=== PATIENT | female | born 1950 | race Caucasian/White ===

== ENCOUNTER 2016-08-02 07:47 | Outpatient (CLI) | payer OTHER | END 2016-08-02 07:48 | disposition home or self-care (01) | DX: Z00.00 Encounter for general adult medical examination without abnormal findings (principal) ==

== ENCOUNTER 2016-08-20 08:32 | Outpatient (CLI) | payer OTHER ==
--- NOTE | 2016-08-21 13:09 | Mammography Report ---
DIGITAL SCREENING MAMMOGRAM: 08/20/2016 CLINICAL INDICATION: A 66-year-old with history of late childbearing for screening. COMPARISON: 01/2013, 12/2012, 12/2011, 03/2007. TECHNIQUE: Routine CC and MLO projections were obtained of the breasts. FINDINGS: Scattered fibroglandular tissue is present within the breasts. There are no dominant jon s, suspicious microcalcifications, or secondary signs of malignancy. In comparison to the previous st udies, there are no significant changes. ASSESSMENT: NO MAMMOGRAPHIC EVIDENCE OF MALIGNANCY. NO SIGNIFICANT INTERVAL CHANGES. RECOMMENDATION: Screening mammography is recommended annually. BIRADS category 1 - negative. STANDARD QUALIFYING STATEMENTS 1. This examination was reviewed with the aid of Computed-Aided Detection (CAD). 2. A negative or benign imaging report should not delay biopsy if clinically suspicious findings are present. Consider surgical consultation if warranted. More than 5% of cancers are not identified by i maging. 3. Dense breasts may obscure an underlying neoplasm. JOB #: [id number] EXT JOB #:[id number]
== END 2016-08-20 08:33 | disposition home or self-care (01) ==
LOC: DI 08:32
PROVIDERS: ATTEND Physician Assistant Medical
DX: Z12.31 Encounter for screening mammogram for malignant neoplasm of breast (principal)
CPT/HCPCS: 77067

== ENCOUNTER 2016-08-20 08:33 | Outpatient (CLI) | payer OTHER ==
--- NOTE | 2016-08-20 14:17 | DEXA Report ---
DEXA SCAN: 08/20/2016 CLINICAL INDICATION: Postmenopausal. TECHNIQUE: Dual energy x-ray absorptiometry (DXA) was performed on a [employer] system. Regions measured are the AP spine, femoral neck, and, if needed, forearm. COMPARISON: None. In accordance with the International Society for Clinical Densitometry (ISCD) guidelines, data from previous exams may be reanalyzed using current recommendations and techniques. This is done to allow a more accurate basis for comparison with the current study. FINDINGS: The data for the lumbar spine is as follows: REGION BMD (g/cm/cm) T-SCORE Z-SCORE L1 0.894 -2.0 -0.8 L2 0.944 -2.1 -0.9 L3 0.958 -2.0 -0.8 L4 1.082 -1.0 0.2 TOTAL 0.979 -1.7 -0.5 NOTE: All evaluable vertebrae are used for classification. The data for the hip is as follows: REGION BMD (g/cm/cm) T-SCORE Z-SCORE Neck 0.779 -1.9 -0.7 TOTAL 0.804 -1.6 -0.7 NOTE: The femoral neck or total proximal femur, whichever is lowest, is used for classification. * Denotes significant change at the 95% confidence level. Denotes dissimilar scan types or analysis methods. IMPRESSION: THE WHO CLASSIFICATION BASED ON THE INTERNATIONAL REFERENCE STANDARD IS OSTEOPENIA. THE FRACTURE RISK IS INCREASED. RECOMMENDATION: Patients with diagnosis of osteoporosis or osteopenia should have regular bone mineral density assessment. For those eligible for Medicare, routine testing is allowed once every 2 years. Testing frequency can be increased for patients who have rapidly progressing disease or for those who are receiving medical therapy to restore bone mass. COMMENT: World Health Organization (WHO) definitions for osteoporosis and osteopenia: NORMAL BMD: T-score at -1.0 or higher, fracture risk is low. OSTEOPENIA BMD: T-score between -1.0 and -2.5, fracture risk is increased. OSTEOPOROSIS BMD: T-score at -2.5 or lower, fracture risk high. National Osteoporosis Foundation recommends: 1. Obtain adequate dietary calcium (at least 1200 mg per day) and vitamin D (400 -800 international units per day). 2. Participate, as appropriate, in regular weightbearing and muscle- strengthening exercise. 3. Avoid tobacco use and reduce alcohol and caffeine intake. 4. For more detailed information see the website at www.NOF.org. MTDD
== END 2016-08-20 08:34 | disposition home or self-care (01) ==
LOC: DI 08:33
PROVIDERS: ATTEND Physician Assistant Medical
DX: Z13.820 Encounter for screening for osteoporosis (principal); M85.89 Other specified disorders of bone density and structure, multiple sites
CPT/HCPCS: 77080

== ENCOUNTER 2016-10-21 07:42 | Day surgery (SDC) | payer OTHER ==
[2016-10-21] MEDS ORDERED: LACTATED RINGERS 1,000 ML IV ONE (08:17)
[2016-10-21] MEDS ORDERED: MIDAZOLAM 2 MG/2 ML VIAL IVP ONE (09:49)
[2016-10-21] MEDS ORDERED: fentaNYL 100 MCG/2 ML VIAL IVP ONE (09:49)
[2016-10-21 11:07] VITALS: BP 110/56
== END 2016-10-21 07:43 | disposition home or self-care (01) ==
LOC: SDS 07:42
PROVIDERS: ATTEND Surgery
PROC: 0DBM8ZX Excision of Descending Colon, Via Natural or Artificial Opening Endoscopic, Diagnostic (ICD-10-PCS; principal; 2016-10-21 08:45)
DX: K63.5 Polyp of colon (principal); K57.30 Diverticulosis of large intestine without perforation or abscess without bleeding; K64.8 Other hemorrhoids; Q43.8 Other specified congenital malformations of intestine
CPT/HCPCS: 45380; J7120

== ENCOUNTER 2018-07-20 13:20 | Outpatient (CLI) | payer MEDICARE, BC ==
--- NOTE | 2018-07-21 09:27 | Mammography Report ---
Reason: SCREENING MAMMO Procedure Date: 07/20/2018 Accession Number: [id number] / [id number] Procedure: [facility] - Screening Mammo w/[place] CPT Code: FULL RESULT: EXAM: Screening Mammo w/[place] DATE: 07/20/2018 2:11 PM CLINICAL HISTORY: Screening examination. History of late childbearing. Family history of breast cancer in a sister at the age of 59. TECHNIQUE: (B) - Bilateral CC and MLO views were obtained. COMPARISON: 08/20/2016 through 10/04/2008. PARENCHYMAL PATTERN: (D) - The breast(s) demonstrate(s) heterogeneously dense fibroglandular parenchyma. FINDINGS: There are no suspicious masses, calcifications, or areas of distortion. IMPRESSION: Negative examination. BI-RADS category 1. RECOMMENDATION: (ANNUAL) - Recommend routine annual screening mammography. BI-RADS CATEGORY: (1) - Negative. STANDARD QUALIFYING STATEMENTS: 1. This examination was not reviewed with the aid of Computer-Aided Detection (CAD). 2. A negative or benign imaging report should not preclude biopsy if clinically suspicious findings are present. 3. Dense breasts may obscure an underlying neoplasm. 4. This examination was reviewed with the aid of 3D breast imaging (tomosynthesis).
== END 2018-07-20 13:21 | disposition home or self-care (01) ==
LOC: DI 13:20
DX: Z12.31 Encounter for screening mammogram for malignant neoplasm of breast (principal); Z80.3 Family history of malignant neoplasm of breast
CPT/HCPCS: 77063; 77067

== ENCOUNTER 2020-07-19 14:20 | Outpatient (CLI) | payer MEDICARE, BC ==
--- NOTE | 2020-07-20 16:24 | DEXA Report ---
PROCEDURE: Dexa Spine and/or Hip INDICATIONS: POSTMENOPAUSAL TECHNIQUE: Dual energy x-ray absorptiometry (DXA) was performed on a [employer] System. Regions measur ed are the AP Spine, femoral neck, and if needed forearm. COMPARISON: 08/20/2016. FINDINGS: Lumbar Spine: Bone Mineral Density 0.92 g/cm/cm,T score -1.7, osteopenia Left Hip: Bone Mineral Density 0.778 g/cm/cm,T score -1.8, osteopenia Left Femoral Neck: Bone Mineral Density 0.746 g/cm/cm, T score -2.1, osteopenia (T score greater or equal to -1.0: NORMAL) (T score from -1.1 to -2.4: OSTEOPENIA) (T score less than or equal to -2.5 to: OSTEOPOROSIS) Impression: Osteopenia. Bone mineral density is decreased 3.2% compared to prior exam obtained 08/21/19 17. Patients with diagnosis of osteoporosis or osteopenia should have regular bone mineral density assess ment. For those eligible for Medicare, routine testing is allowed once every 2 years. Testing frequ ency can be increased for patients who have rapidly progressing disease or for those who are receivin g medical therapy to restore bone mass. Reviewed by: Gwen Zee MD, PhD on 07/20/2020 4:23 PM PDT Approved by: Gwen Zee MD, PhD on 07/20/2020 4:23 PM PDT Station ID: [id number]
== END 2020-07-19 14:21 | disposition home or self-care (01) ==
LOC: DI 14:20
PROVIDERS: ATTEND Physician Assistant Medical
DX: M85.89 Other specified disorders of bone density and structure, multiple sites (principal)

== ENCOUNTER 2020-09-05 14:03 | Outpatient (CLI) | payer MEDICARE, BC ==
--- NOTE | 2020-09-06 13:23 | Mammography Report ---
BILATERAL DIGITAL SCREENING MAMMOGRAM 3D/2D: 09/05/2020 CLINICAL: Routine screening. Comparison is made to exams dated: 07/20/2018 mammogram and 08/20/2016 mammogram - [facility]. The tissue of both breasts is heterogeneously dense. This may lower the sensitivity of mamm ography. No significant masses, calcifications, or other findings are seen in either breast. There has been no significant interval change. IMPRESSION: NEGATIVE There is no mammographic evidence of malignancy. A 1 year screening mammogram is recommended. This exam was interpreted at Station ID: [id number]. NOTE: For mammograms, a report in lay terms will be sent to the patient. Approximately 15% of breast malignancies will not be visualized mammographically. In the management of a palpable breast mass, a negative mammogram must not discourage biopsy of a clinically suspicious lesion. Electronically Signed By: Romie Wellington M.D. ar/[email or web address]:09/05/2020 15:43:34 ACR BI-RADS Category 1: Negative 3341F PARENCHYMAL PATTERN: (D) - The breast(s) demonstrate(s) heterogeneously dense fibroglandular jose hogan. BI-RADS CATEGORY: (1) - 1 RECOMMENDATION: (ANNUAL) - Recommend routine annual screening mammography. [id number] 1 year screening LATERALITY: (B)
== END 2020-09-05 14:04 | disposition home or self-care (01) ==
LOC: DI 14:03
DX: Z12.31 Encounter for screening mammogram for malignant neoplasm of breast (principal)

== ENCOUNTER 2021-03-08 19:05 | Emergency (ER) | payer MEDICARE, BC ==
[2021-03-08 19:19] VITALS: BP 168/75
--- NOTE | 2021-03-08 19:28 | ED Physician Documentation ---
PD HPI LOWER EXT INJURY - Stated complaint Stated Complaint: FALL,LT KNEE INJ - Chief complaint Chief Complaint: Ext Problem - History obtained from History obtained from: Patient - Additional information Additional information: 70-year-old woman who [place] beach today and stepping over a log. She caught her toe coming over the log and landed on her knee and cheekbone. The left knee hurts quite a bit but is better after icing and resting. She was able to walk the half mile back. No other injuries. 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 HEENT: Tonsil/Adenoidectomy - Present Medications Home Medications: Ambulatory Orders Medication Instructions Recorded Confirmed Estradiol [Vagifem] 10 mcg VG ONCE 10/18/16 10/21/16 - Allergies Allergies/Adverse Reactions: Allergies Allergy/AdvReac Type Severity Reaction Status Date / Time latex Allergy Rash Verified 03/08/21 19:16 PD ED PE NORMAL - Vitals Vital signs reviewed: Yes - General General: Alert and oriented X 3, No acute distress - Back Back: No CVA TTP, No spinal TTP - Derm Derm: Normal color, Warm and dry - Extremities Extremities: Other (Left knee has no obvious effusion clinically. She is tender posteriorly but nowhere else on the joint. She is unable to straighten the leg due to weakness more than pain, but I do not appreciate any tenderness over the patella. Ligamentously testing is all intact.) - Neuro Neuro: Alert and oriented X 3, Normal speech Results - Vitals Vitals: Vital Signs - 24 hr 03/08/21 19:11 Temperature 36.6 C Heart Rate 94 Respiratory 18 Rate Blood Pressure 168/75 H O2 Saturation 100 Oxygen O2 Source Room air PD MEDICAL DECISION MAKING - ED course ED course: 70-year-old woman has an isolated left knee injury from a fall. She does not appear to have any ligamentous laxity but is unable to walk. 4 view x-ray of the left knee interpreted contemporaneously by me shows a large effusion no fractures. She was placed in a knee immobilizer and upon crutches pending orthopedic follow-up. She declined prescription pain medication. Departure - Departure Disposition: 01 Home, Self Care Clinical Impression: Knee effusion, left Condition: Good Record reviewed to determine appropriate education?: Yes Instructions: ED Sprain Knee Follow-Up: Jeramie Harmon MD [Provider Admit Priv/Credential] - Comments: As discussed, the x-ray was normal with the exception of fluid in the joint. Given the associated trauma my suspicion is that the fluid represents blood which should reabsorb over time but can be quite painful. You do not seem to have any ligamentous laxity so my hope is that it was nothing importance in the knee that caused the bleeding. You should follow-up with the orthopedic surgeon next week for reevaluation, if not improving quickly he may schedule you for an MRI of your knee. For the first few days you can take ibuprofen at a dose of 600 mg 3-4 times a day as needed for pain, but I would try to transition to acetaminophen after that.
--- NOTE | 2021-03-08 19:55 | XRAY Report ---
PROCEDURE: Knee 4 View LT INDICATIONS: Knee injury TECHNIQUE: 3 views of the left knee(s) were acquired. COMPARISON: None. FINDINGS: There is a large left knee joint effusion with prepatellar soft tissue swelling. No fracture or dislo cation. Normal patellar height and position. IMPRESSION: No fracture. Prepatellar soft tissue swelling and large knee joint effusion. Reviewed by: Vick Lopez MD on 03/08/2021 7:54 PM PST Approved by: Vick Lopez MD on 03/08/2021 7:54 PM PST Station ID: [id number]
== END 2021-03-08 20:24 | disposition home or self-care (01) ==
LOC: ED 19:05
DX: M25.462 Effusion, left knee (principal)
CPT/HCPCS: 99282; 99283

== ENCOUNTER 2021-03-26 11:46 | Outpatient (CLI) | payer MEDICARE, BC ==
--- NOTE | 2021-03-26 12:31 | XRAY Report ---
PROCEDURE: Knee 4 View LT INDICATIONS: LEFT KNEE PAIN TECHNIQUE: 4 views of the left knee(s) were acquired. COMPARISON: March 08, 2021 FINDINGS: BONES/JOINT: Redemonstrated transverse fracture of the inferior patella with increase diastasis anila red to the prior study. Small to moderate suprapatellar joint effusion. SOFT TISSUES: Diffuse edema. IMPRESSION: 1.Transverse fracture of the inferior patella with increased diastasis compared to the prior study. Findings were discussed with ordering physician at the time of dictation. Reviewed by: Juan Blankenship MD on 03/26/2021 12:30 PM PST Approved by: Juan Blankenship MD on 03/26/2021 12:30 PM PST Station ID: [id number]
== END 2021-03-26 11:47 | disposition home or self-care (01) ==
LOC: DI.WOS 11:46
PROVIDERS: ATTEND Physician Assistant
DX: S82.032A Displaced transverse fracture of left patella, initial encounter for closed fracture (principal)

== ENCOUNTER 2021-05-08 09:47 | Outpatient (CLI) | payer MEDICARE, BC ==
--- NOTE | 2021-05-08 17:33 | XRAY Report ---
PROCEDURE: Knee 3 View LT INDICATIONS: PATELLA FRACTURE TECHNIQUE: 3 views of the right knee(s) were acquired. COMPARISON: 03/26/2021 FINDINGS: Bones: Patellar fracture shows evidence of remodeling and bridging callus. Soft tissues: Persistent moderate joint effusion. No suspicious soft tissue calcifications. IMPRESSION: Healing patellar fracture and stable joint effusion Reviewed by: Ollie Malloy MD on 05/08/2021 4:32 PM [place] Approved by: Ollie Malloy MD on 05/08/2021 4:32 PM [place] Station ID: [id number]
== END 2021-05-08 09:48 | disposition home or self-care (01) ==
LOC: DI.WOS 09:47
PROVIDERS: ATTEND Physician Assistant
DX: S82.032D Displaced transverse fracture of left patella, subsequent encounter for closed fracture with routine healing (principal)

== ENCOUNTER 2022-07-02 10:37 | Outpatient (CLI) | payer MEDICARE, BC ==
[2022-07-02 10:50] LABS: BASOPHILS # (AUTO) 0.1 10^3/uL (0.0-0.1); EOSINOPHILS # (AUTO) 0.1 10^3/uL (0.0-0.7); EOSINOPHILS % (AUTO) 0.7 %; HCT - HEMATOCRIT 37.9 % (37.0-47.0); HGB - HEMOGLOBIN 13.1 g/dL (12.0-16.0); LYMPHOCYTES # (AUTO) 2.7 10^3/uL (1.5-3.5); LYMPHOCYTES % (AUTO) 40.4 %; MEAN CORPUSCULAR HEMOGLOBIN 31.1 pg (27.0-31.0); MEAN CORPUSCULAR HGB CONC 34.6 g/dL (32.0-36.0); MEAN PLATELET VOLUME 8.8 fL (7.9-10.8); MONOCYTES # (AUTO) 0.6 10^3/uL (0.0-1.0); MONOCYTES % (AUTO) 8.1 %; NEUTROPHILS # (AUTO) 3.4 10^3/uL (1.5-6.6); NEUTROPHILS % (AUTO) 49.7 %; PLT - PLATELET COUNT 298 10^3/uL (130-450); RED BLOOD COUNT 4.21 10^6/uL (4.20-5.40); RED CELL DISTRIBUTION WIDTH 11.9 % (12.0-15.0); WHITE BLOOD COUNT 6.8 x10^3/uL (4.8-10.8)
[2022-07-02 11:20] LABS: ALBUMIN 4.4 g/dL (3.2-5.5); ALBUMIN/GLOBULIN RATIO 1.6 (1.0-2.2); ALKALINE PHOSPHATASE 68 IU/L (42-121); ALT ALANINE AMINOTRANSFERASE 20 IU/L (10-60); AST ASPARTATE AMINOTRANSFERASE 28 IU/L (10-42); BILIRUBIN,TOTAL 1.2 mg/dL (0.2-1.0); BUN - BLOOD UREA NITROGEN 9 mg/dL (6-20); CALCIUM 8.9 mg/dL (8.5-10.3); CARBON DIOXIDE - CO2 26 mmol/L (21-32); CHLORIDE 97 mmol/L (101-111); CHOL/HDL RATIO 3.4 (<4.4); CHOLESTEROL 223 mg/dL; CREATININE 0.6 mg/dL (0.4-1.0); GFR - MDRD 99 (>89); GLUCOSE 92 mg/dL (70-100); HDL CHOLESTEROL 66 mg/dL; LDL CHOLESTEROL,CALCULATED 148 mg/dL; LDL/HDL RATIO 2.2 (<4.4); POTASSIUM 3.4 mmol/L (3.5-5.0); SODIUM 132 mmol/L (135-145); TOTAL PROTEIN 7.2 g/dL (6.7-8.2); TRIGLYCERIDES 44 mg/dL; VLDL CHOLESTEROL 9 mg/dL
== END 2022-07-02 10:38 | disposition home or self-care (01) ==
LOC: LAB 10:37
PROVIDERS: ATTEND Physician Assistant Medical
DX: E78.5 Hyperlipidemia, unspecified (principal); J01.90 Acute sinusitis, unspecified
CPT/HCPCS: 36415; 80053; 80061; 83721; 85025

== ENCOUNTER 2022-07-16 08:49 | Outpatient (CLI) | payer MEDICARE, BC ==
--- NOTE | 2022-07-17 12:11 | Mammography Report ---
BILATERAL DIGITAL SCREENING MAMMOGRAM 3D/2D: 07/16/2022 CLINICAL: Routine screening. Family history of breast cancer. Comparison is made to exams dated: 09/05/2020 mammogram, 07/20/2018 mammogram, and 08/20/2016 mammogram - [facility]. There are scattered areas of fibroglandular density in both breasts (category b / 25%-50% glandular t issue). No significant masses, calcifications, or other findings are seen in either breast. There has been no significant interval change. IMPRESSION: NEGATIVE There is no mammographic evidence of malignancy. A 1 year screening mammogram is recommended. Based on the Tyrer Cuzick model (a risk assessment model) the patients lifetime risk is 6.0% and her 10 year risk is 4.1%. According to the ACR, ACS, and NCCN guidelines, an annual breast MRI exam aparna g with mammogram is recommended if the patients lifetime risk is 20% or greater. This exam was interpreted at Station ID: [id number]. NOTE: For mammograms, a report in lay terms will be sent to the patient. Approximately 15% of breast malignancies will not be visualized mammographically. In the management of a palpable breast mass, a negative mammogram must not discourage biopsy of a clinically suspicious lesion. Electronically Signed By: Amelie webster/alex:07/16/2022 13:24:22 letter sent: No_Letter ACR BI-RADS Category 1: Negative 3341F PARENCHYMAL PATTERN: (A) - The breast(s) demonstrate(s) scattered fibroglandular densities. BI-RADS CATEGORY: (1) - 1 Mammogram [id number] 1 year screening LATERALITY: (B)
== END 2022-07-16 08:50 | disposition home or self-care (01) ==
LOC: DI.S 08:49
DX: Z12.31 Encounter for screening mammogram for malignant neoplasm of breast (principal); Z80.3 Family history of malignant neoplasm of breast